=== PATIENT | male | born 1975 | race Caucasian/White ===

== ENCOUNTER 2020-06-05 08:16 | Outpatient (CLI) | payer BC, SELFPAY ==
--- NOTE | ~2020-06-05 | US_ITS ---
EXAMINATION: US right upper quadrant DATE: 06/05/2020 08:41 INDICATION: Right upper quadrant pain TECHNIQUE: Multiple grayscale and Doppler ultrasound images of the abdomen were obtained. COMPARISON: None available FINDINGS: The head and body of the pancreas are normal. The pancreatic tail is obscured by bowel gas. The liver demonstrates increased echogenicity, heterogenous echotexture, and decreased through trans mission. No surface nodularity. Normal hepatopetal flow in the main portal vein. The gallbladder is n ormal with no abnormal wall thickening, pericholecystic fluid or stones. The normal common bile duct measures 4 mm. There was no sonographic Hayes sign. IMPRESSION: 1. Normal sonographic study of the gallbladder. 2. Diffuse hepatic steatosis. Reviewed, dictated and finalized at location B.
== END 2020-06-05 08:17 | disposition home or self-care (01) ==
LOC: CHSIMG 08:19
PROVIDERS: PCP Internal Medicine; Visit Provider Internal Medicine
DX: R10.11 Right upper quadrant pain (principal)
CPT/HCPCS: 76705